=== PATIENT | female | born 1990 | race Native Hawaiian/Other Pacific Islander ===

== ENCOUNTER 2020-08-17 15:58 | Outpatient (CLI) | payer OTHER | END 2020-08-17 20:06 | disposition home or self-care (01) | LOC: INF 15:58 | PROVIDERS: ATTEND Internal Medicine Endocrinology, Diabetes & Metabolism | DX: Z23 Encounter for immunization (principal) | CPT/HCPCS: 96372 ==

== ENCOUNTER 2020-09-12 12:13 | Outpatient (CLI) | payer OTHER | END 2020-09-12 19:21 | disposition home or self-care (01) | LOC: INF 12:13 | PROVIDERS: ATTEND Internal Medicine | DX: Z23 Encounter for immunization (principal) | CPT/HCPCS: 96372 ==